=== PATIENT | male | born 1975 | race Caucasian/White ===

== ENCOUNTER 2017-03-08 22:18 | Emergency (ER) | payer OTHER ==
[~2017-03-08] VITALS: Ht 170.2 cm; Wt 90.3 kg
[2017-03-08 22:40] VITALS: Ht 170.2 cm; Wt 90.3 kg
[2017-03-09 01:02] VITALS: BP 115/59
== END 2017-03-09 01:02 | disposition home or self-care (01) ==
LOC: ED 22:18
DX: B34.9 Viral infection, unspecified (principal)
CPT/HCPCS: J1885; J2765; Q0162